=== PATIENT | male | born 1965 | race Caucasian/White ===

== ENCOUNTER 2021-04-08 10:18 | Emergency (ER) | payer OTHER ==
[~2021-04-08] VITALS: Ht 180.3 cm; Wt 115.7 kg
[2021-04-08 10:27] VITALS: BP_SYST 136
[2021-04-08 11:08] LABS: BASOPHILS # (AUTO) 0.1 K/uL (0.0-0.2); BASOPHILS % (AUTO) 0.8 % (0.0-2.0); EOSINOPHILS # (AUTO) 0.2 K/uL (0.0-0.4); EOSINOPHILS % (AUTO) 3.5 % (0.0-4.0); HEMATOCRIT 42.7 % (36-54); HEMOGLOBIN 14.8 g/dL (14.0-18.0); LYMPHOCYTES % (AUTO) 32.3 % (20.5-51.5); MEAN CORPUSCULAR HEMOGLOBIN 32 pg (27-31); MEAN CORPUSCULAR HGB CONC 35 % (32-36); MEAN CORPUSCULAR VOLUME 92 fL (79.0-98.0); MONOCYTES # (AUTO) 0.2 K/uL (0.0-1.0); MONOCYTES % (AUTO) 3.8 % (1.7-9.3); NEUTROPHILS # (AUTO) 3.7 K/uL (1.8-7.7); NEUTROPHILS % (AUTO) 59.6 % (40.0-70.0); PLATELET COUNT (AUTO) 184 K/uL (130-430); RED BLOOD CELL COUNT(AUTO) 4.65 MIL/uL (4.2-6.2); RED CELL DISTRIBUTION WIDTH 13.1 % (9.0-15.0); WHITE BLOOD COUNT (AUTO) 6.3 K/uL (4.8-10.8)
[2021-04-08 11:22] LABS: CALCIUM 8.7 mg/dL (8.4-11.0); CREATININE 1.31 mg/dL (0.55-1.30); POTASSIUM 3.6 mmol/L (3.5-5.1)
[2021-04-08 11:26] LABS: PROTHROMBIN TIME 9.8 SECS (9.5-12.5)
[2021-04-08 11:28] LABS: ALBUMIN 3.6 g/dL (3.4-4.8); TOTAL BILIRUBIN 0.7 mg/dL (0.0-1.0)
[2021-04-08 12:10] VITALS: BP_SYST 147
[2021-04-08] MEDS ORDERED: HYDR-3917 PO (12:12)
[2021-04-08] MEDS ORDERED: MECL-160 PO (12:12)
[2021-04-08] MEDS ORDERED: IBUP-1971 PO (12:12)
== END 2021-04-08 12:10 | disposition home or self-care (01) ==
LOC: SED 10:18
DX: R51.9 Headache, unspecified (principal); R42 Dizziness and giddiness; Z79.899 Other long term (current) drug therapy
CPT/HCPCS: 36415; 70450-TC; 71045; 76376; 80053; 84484; 85025; 85610-TC; 85730-TC; 93005; 99285